=== PATIENT | female | born 1950 | race Caucasian/White ===

== ENCOUNTER → 2019-06-22 | Outpatient (REF) | payer MEDICARE ==
[2019-06-22 14:30] LABS: RHEUMATOID FACTOR QUANT < 10.0 IU/ML (<15.0)
[2019-06-22 14:36] LABS: TOTAL 25(OH) VITAMIN D 48.8 NG/ML (30.0-100.0)
[2019-06-22 14:37] LABS: FOLATE 10.9 NG/ML; VITAMIN B12 LEVEL 1099 PG/ML
[2019-06-22 15:02] LABS: HEMOGLOBIN A1c 5.4 %
[2019-06-26 00:06] LABS: ANCA-ATYPICAL <1:20 titer (Neg:<1:20); ANGIOTENSIN 1 CONVERTING ENZYM 73 U/L (14-82); ANTINUCLEAR ANTIBODIES DIRECT Negative (Negative); CYTOPLASMIC NEUTROP AB ANCA-C <1:20 titer (Neg:<1:20); Lyme Disease IgG/IgM Antibodie <0.91 ISR (0.00-0.90); Lyme Disease IgM Ab Quantitati <0.80 index (0.00-0.79); PERINUCLEAR AB ANCA-P <1:20 titer (Neg:<1:20); VITAMIN B1 LEVEL WHOLE BLOOD 99.1 nmol/L (66.5-200.0); VITAMIN B6,PYRIDOXAL PHOSPHATE 7.5 ug/L (2.0-32.8); VITAMIN E(ALPHA TOCOPHEROL) 11.5 mg/L (9.0-29.0); VITAMIN E(GAMMA TOCOPHEROL) 1.7 mg/L (0.5-4.9)
== END ==
LOC: M LABNEURO 09:42
PROVIDERS: ATTEND Psychiatry & Neurology Neurology
DX: R20.0 Anesthesia of skin (principal); E55.9 Vitamin D deficiency, unspecified; A69.20 Lyme disease, unspecified; D86.9 Sarcoidosis, unspecified

== ENCOUNTER → 2023-05-28 | Outpatient (REF) | payer MEDICARE ==
[2023-05-28 14:32] LABS: BACTERIA, URINE AUTO 1+ (NEGATIVE); RBC, URINE AUTO 0 /HPF (0-3); SQUAMOUS EPITHELIAL CELL UR AU 0 /HPF (0-6); WBC, URINE AUTO 4 /HPF (0-3)
== END ==
LOC: M SMT 13:01
PROVIDERS: ATTEND Specialist
DX: N30.91 Cystitis, unspecified with hematuria (principal)

== ENCOUNTER → 2023-07-15 | Outpatient (REF) | payer MEDICARE | LOC: M SMT 18:17 | PROVIDERS: ATTEND Specialist | DX: N30.91 Cystitis, unspecified with hematuria (principal) ==